=== PATIENT | male | born 1960 | race Caucasian/White ===

== ENCOUNTER 2021-02-21 05:46 | Emergency (ER) | payer OTHER ==
[2021-02-21] MEDS ORDERED: Sodium Chloride 0.9% 10 ML Syringe FLUSH PRN (06:12)
[2021-02-21] MEDS ORDERED: HYDROmorphone 1 MG/ML Syringe IVPUSH ONE ×3 (06:13→11:02)
[2021-02-21] MEDS ORDERED: Lactated Ringers 1,000 ML IV SCH (06:15)
--- NOTE | 2021-02-21 06:16 | EDM.PDOC ---
<OfficerTerrell - Last Filed: 02/21/21 06:16> ED HPI GENERAL MEDICAL PROBLEM - General Stated Complaint: ABD PAIN/SOB Time Seen by Provider: 02/21/21 06:11 Source of Information: Reports: Patient, Family, RN Notes Reviewed History Limitations: Reports: No Limitations - History of Present Illness INITIAL COMMENTS - FREE TEXT/NARRATIVE: 60-year-old gentleman presents emergency department day complaint of abdominal pain states it come on suddenly he feels very short of breath because of pain will take his breath away, he does have a history of gastric bypass about 3 years ago. - Related Data Allergies Allergy/AdvReac Type Severity Reaction Status Date / Time amoxicillin Allergy Rash Verified 02/21/21 06:30 Penicillins Allergy Rash Verified 02/21/21 06:30 atorvastatin [From Lipitor] AdvReac Muscle Verified 02/21/21 06:58 Weakness Home Meds: Home Meds Cyanocobalamin (Vitamin B-12) [Cyanocobalamin Injection] 1,000 mcg IJ Q30D 02/21/21 [History] Ferrous Sulfate [Iron] 325 mg PO DAILY 02/21/21 [History] Gabapentin [Neurontin] 100 mg PO BEDTIME 02/21/21 [History] Insulin Degludec [Tresiba] 20 unit SQ BEDTIME 02/21/21 [History] Pioglitazone [Actos] 15 mg PO BEDTIME 02/21/21 [History] Simvastatin 40 mg PO DAILY 02/21/21 [History] Tamsulosin HCl [Flomax] 0.4 mg PO BID 02/21/21 [History] lisinopriL [Lisinopril] 40 mg PO DAILY 02/21/21 [History] metFORMIN [Glucophage] 500 mg PO BIDMEALS 02/21/21 [History] Past Medical History - Past Surgical History GI Surgical History: Reports: Bariatric Procedure Social & Family History - Tobacco Use Tobacco Use Status *Q: Never Tobacco User ED ROS GENERAL - Review of Systems Review Of Systems: See Below Constitutional: Reports: No Symptoms Respiratory: Reports: Shortness of Breath Cardiovascular: Reports: No Symptoms GI/Abdominal: Reports: Abdominal Pain, Flatus. Denies: Nausea, Vomiting ED EXAM, GI/ABD - Physical Exam Exam: See Below Exam Limited By: No Limitations General Appearance: Alert, Mild Distress Respiratory/Chest: No Respiratory Distress, Lungs Clear, Normal Breath Sounds, No Accessory Muscle Use, Chest Non-Tender Cardiovascular: Regular Rate, Rhythm, No Murmur GI/Abdominal Exam: Normal Bowel Sounds, Soft, Distended, Tender #1 Interpretation EKG Date: 02/21/21 Time: 06:16 Rhythm: NSR [place]: Normal P-Wave: Present QRS: Normal ST-T: Normal QT: Normal Comparison: NA - No Prior EKG Departure - Departure Disposition: DC/Tfer to Other 70 Clinical Impression: Intestinal perforation Abdominal pain Qualifiers: Abdominal location: upper abdomen, unspecified Qualified Code(s): R10.10 - Upper abdominal pain, unspecified - Discharge Information Referrals: PCP,None [Primary Care Provider] - Forms: ED Department Discharge Care Plan Goals: Patient is to be transferred to [facility] for surgical consultation regarding upper abdominal pain with bowel perforation. His pain is relatively controlled on discharge and his vitals are stable. <Rodger Patiño - Last Filed: 02/21/21 14:43> ED HPI GENERAL MEDICAL PROBLEM Abdomen Pain Score (Numeric/FACES): 8 Course - Vital Signs Last Recorded V/S: Last Vital Signs Temp 95.7 F L 02/21/21 06:05 Pulse 87 02/21/21 10:53 Resp 14 02/21/21 10:53 BP 123/64 02/21/21 10:53 Pulse Ox 98 02/21/21 10:53 - Orders/Labs/Meds Orders: Active Orders 24 hr Category Date Time Status Insert Mccarty Catheter [Insert Urinary Catheter] [OM.PC] Care 02/21/21 07:00 Ordered Q24H Peripheral IV Insertion Adult [OM.PC] Urgent Oth 02/21/21 06:12 Ordered EKG 12 Lead [EK] Stat Ther 02/21/21 06:13 Ordered Labs: Laboratory Tests 02/21/21 02/21/21 02/21/21 Range/Units 06:05 06:05 06:05 WBC 7.5 (4.5-11.0) K/uL RBC 4.77 (4.30-5.90) M/uL Hgb 14.1 (12.0-15.0) g/dL Hct 42.7 (40.0-54.0) % MCV 90 (80-98) fL MCH 30 (27-31) pg MCHC 33 (32-36) % Plt Count 303 (150-400) K/uL Neut % (Auto) 45.1 (36-66) % Lymph % (Auto) 37.5 (24-44) % Citrus % (Auto) 12.9 H (2-6) % Eos % (Auto) 4.0 (2-4) % Baso % (Auto) 0.5 (0-1) % Sodium 137 L (140-148) mmol/L Potassium 4.1 (3.6-5.2) mmol/L Chloride 99 L (100-108) mmol/L Carbon Dioxide 29 (21-32) mmol/L Anion Gap 13.1 (5.0-14.0) mmol/L BUN 19 H (7-18) mg/dL Creatinine 0.8 (0.8-1.3) mg/dL Est Cr Clr Drug Dosing TNP Estimated GFR (MDRD) > 60 (>60) Glucose 195 H (74-106) mg/dL Lactic Acid 1.7 (0.4-2.0) mmol/L Calcium 8.9 (8.5-10.1) mg/dL Total Bilirubin 0.3 (0.2-1.0) mg/dL AST 33 (15-37) U/L ALT 54 (12-78) U/L Alkaline Phosphatase 59 (46-116) U/L Troponin I < 0.017 (0.000-0.056) ng/mL Total Protein 6.7 (6.4-8.2) g/dL Albumin 3.6 (3.4-5.0) g/dL Globulin 3.1 (2.3-3.5) g/dL Albumin/Globulin Ratio 1.2 (1.2-2.2) Lipase 244 (73-393) U/L Urine Color (YELLOW) Urine Appearance (CLEAR) Urine pH (5.0-8.0) Ur Specific [place] (1.008-1.030) Urine Protein (NEGATIVE) mg/dL Urine Glucose (UA) (NEGATIVE) mg/dL Urine Ketones (NEGATIVE) mg/dL Urine Occult Blood (NEGATIVE) Urine Nitrite (NEGATIVE) Urine Bilirubin (NEGATIVE) Urine Urobilinogen (0.2-1.0) EU/dL Ur Leukocyte Esterase (NEGATIVE) Urine RBC (0-5) Urine WBC (0-5) Ur Epithelial Cells Amorphous Sediment Urine Bacteria Urine Mucus SARS CoV-2 RNA Rapid CHET 02/21/21 02/21/21 Range/Units 07:43 08:58 WBC (4.5-11.0) K/uL RBC (4.30-5.90) M/uL Hgb (12.0-15.0) g/dL Hct (40.0-54.0) % MCV (80-98) fL MCH (27-31) pg MCHC (32-36) % Plt Count (150-400) K/uL Neut % (Auto) (36-66) % Lymph % (Auto) (24-44) % Citrus % (Auto) (2-6) % Eos % (Auto) (2-4) % Baso % (Auto) (0-1) % Sodium (140-148) mmol/L Potassium (3.6-5.2) mmol/L Chloride (100-108) mmol/L Carbon Dioxide (21-32) mmol/L Anion Gap (5.0-14.0) mmol/L BUN (7-18) mg/dL Creatinine (0.8-1.3) mg/dL Est Cr Clr Drug Dosing Estimated GFR (MDRD) (>60) Glucose (74-106) mg/dL Lactic Acid (0.4-2.0) mmol/L Calcium (8.5-10.1) mg/dL Total Bilirubin (0.2-1.0) mg/dL AST (15-37) U/L ALT (12-78) U/L Alkaline Phosphatase (46-116) U/L Troponin I (0.000-0.056) ng/mL Total Protein (6.4-8.2) g/dL Albumin (3.4-5.0) g/dL Globulin (2.3-3.5) g/dL Albumin/Globulin Ratio (1.2-2.2) Lipase (73-393) U/L Urine Color Yellow (YELLOW) Urine Appearance Clear (CLEAR) Urine pH 6.0 (5.0-8.0) Ur Specific [place] 1.015 (1.008-1.030) Urine Protein Negative (NEGATIVE) mg/dL Urine Glucose (UA) >=1000 H (NEGATIVE) mg/dL Urine Ketones Negative (NEGATIVE) mg/dL Urine Occult Blood Negative (NEGATIVE) Urine Nitrite Negative (NEGATIVE) Urine Bilirubin Negative (NEGATIVE) Urine Urobilinogen 0.2 (0.2-1.0) EU/dL Ur Leukocyte Esterase Negative (NEGATIVE) Urine RBC Not seen (0-5) Urine WBC Not seen (0-5) Ur Epithelial Cells Not seen Amorphous Sediment Few Urine Bacteria Rare Urine Mucus Not seen SARS CoV-2 RNA Rapid CHET Negative Meds: Medications Discontinued Medications Generic Name Dose Route Start Last Admin Trade Name Freq PRN Reason Stop Dose Admin Hydromorphone HCl 1 mg 02/21/21 06:13 02/21/21 06:31 Hydromorphone 1 Mg/Ml Syringe IVPUSH 02/21/21 06:14 1 mg ONETIME ONE Administration Hydromorphone HCl 1 mg 02/21/21 07:50 02/21/21 08:05 Hydromorphone 1 Mg/Ml Syringe IVPUSH 02/21/21 07:51 1 mg ONETIME ONE Administration Hydromorphone HCl 1 mg 02/21/21 11:02 02/21/21 11:08 Hydromorphone 1 Mg/Ml Syringe IVPUSH 02/21/21 11:03 1 mg ONETIME ONE Administration Lactated Ringer's 1,000 mls @ 125 mls/hr 02/21/21 06:15 02/21/21 06:34 Ringers, Lactated IV 125 mls/hr ASDIRECTED MEAGHAN Administration Sodium Chloride 80 mls @ 3.5 mls/sec 02/21/21 07:00 02/21/21 07:13 Normal Saline IV 02/21/21 07:01 3.5 mls/sec ASDIRECTED MEAGHAN Administration Cefoxitin Sodium 1 gm/ Sodium 50 mls @ 100 mls/hr 02/21/21 07:52 02/21/21 08:06 Chloride IV 02/21/21 08:21 100 mls/hr ONETIME ONE Administration Iopamidol 100 ml 02/21/21 07:00 02/21/21 07:13 Iopamidol 612 Mg/Ml 100 Ml Bottle IV 02/21/21 07:01 100 ml . DIRECTED MEAGHAN Administration Lidocaine HCl 10 ml 02/21/21 07:00 02/21/21 07:41 Lidocaine 2% Jelly 10 Ml Urojet MUCMEM 02/21/21 07:01 10 ml ONETIME ONE Administration Pantoprazole Sodium 40 mg 02/21/21 07:50 02/21/21 08:05 Pantoprazole 40 Mg Vial IVPUSH 02/21/21 07:51 40 mg ONETIME ONE Administration Sodium Chloride 10 ml 02/21/21 06:12 02/21/21 06:35 Sodium Chloride 0.9% 10 Ml Syringe FLUSH 10 ml ASDIRECTED PRN Administration Keep Vein Open Sodium Chloride 10 ml 02/21/21 06:51 02/21/21 09:55 Sodium Chloride 0.9% 10 Ml Syringe FLUSH 02/21/21 06:52 10 ml ONETIME ONE Administration - Re-Assessments/Exams Free Text/Narrative Re-Assessment/Exam: 02/21/21 08:05 Patient care turned over from Officer pending CT results. There is intra- abdominal free air and inflammatory changes around the duodenum and jejunum indicating a likely perforation. This was discussed with the radiologist. I also discussed this with Dr. Irizarry, surgeon on-call and it was recommended that the patient be transferred back [facility]. He was given 1 mg of IV Dilaudid, 40 mg of IV Protonix, and 500 mg of IV Mefoxin. We are awaiting a return call from the surgeon at his home hospital in [facility]. Departure - Departure Time of Disposition: 11:46 Sepsis Event Note (ED) - Focused Exam Vital Signs: Vital Signs Temp Pulse Resp BP Pulse Ox 02/21/21 10:53 87 14 123/64 98 02/21/21 09:43 76 15 121/60 97 02/21/21 09:13 73 13 120/61 96 02/21/21 08:48 69 16 107/44 L 96 02/21/21 08:14 69 18 117/43 L 96 02/21/21 07:47 62 18 118/48 L 97 02/21/21 07:01 65 14 121/55 L 100 02/21/21 06:05 95.7 F L 63 16 119/62 97
[2021-02-21] MEDS ORDERED: Sodium Chloride 0.9% 10 ML Syringe FLUSH ONE (06:51)
[2021-02-21] MEDS ORDERED: Sodium Chloride 0.9% 80 ML IV SCH (07:00)
[2021-02-21] MEDS ORDERED: Iopamidol 612 MG/ML 100 ML Bottle IV SCH (07:00)
[2021-02-21] MEDS ORDERED: Lidocaine 2% Jelly 10 ML Urojet MUCMEM ONE (07:00)
--- NOTE | 2021-02-21 07:44 | CRLCT ---
For Patients: As a result of the Century Cures Act, medical imaging exams and procedure reports are released immediately into your electronic medical record. You may view this report before your referring provider. If you have questions, please contact your health care provider. INDICATION: Epigastric abdomen pain. History of bariatric surgery. TECHNIQUE: CT abdomen and pelvis acquired with 100 cc Isovue-300 IV contrast. COMPARISON: None. FINDINGS: Lower chest: Unremarkable. Liver: Unremarkable. Normal in size and attenuation. No suspicious masses. Gallbladder and bile ducts: Unremarkable. No stones or inflammation. No biliary dilatation. Pancreas: Unremarkable. No mass or inflammation. Spleen: Unremarkable. Normal in size. No masses. Adrenal glands: Unremarkable. No nodules. Kidneys: Unremarkable. No suspicious masses, stones, or hydronephrosis. GI tract: Gastric bypass changes are present. GI tract otherwise within normal limits in caliber and appearance. Mild inflammation/edema involving the distal duodenum or proximal jejunum adjacent to the stomach. However, there is a fair amount of free air in the upper abdomen suspicious for a bowel perforation. Vasculature: Unremarkable. Mesenteric arteries are patent. Lymph nodes: No lymphadenopathy. Omentum/Peritoneum/Abdominal Wall: Minimal free fluid in the lower abdomen and pelvis. No focal fluid collection to suggest abscess or hematoma. Pelvis: Unremarkable. Bones: Unremarkable for age. IMPRESSION: Moderate amount of free intra-abdominal air suspicious for a perforated viscus. There are gastric bypass changes and mild inflammation/edema involving the distal duodenum or proximal jejunum. No other focal or specific finding to suggest a source of the free air. Remainder the exam is unremarkable. Results discussed with Dr. Patiño at 0740 hours. Dictated by Harmeet Martinez MD @ 02/21/2021 7:42:03 AM Please note that all CT scans at this facility use dose modulation, iterative reconstruction, and/or weight-based dosing when appropriate to reduce radiation dose to as low as reasonably achievable. Dictated by: Harmeet Martinez MD @ 02/21/2021 07:42:08 (Electronically Signed)
[2021-02-21] MEDS ORDERED: Pantoprazole 40 MG Vial IVPUSH ONE (07:50)
== END 2021-02-21 11:20 | disposition other institution (70) ==
LOC: JP.ED 05:46
DX: K63.1 Perforation of intestine (nontraumatic) (principal); Z88.0 Allergy status to penicillin; Z88.8 Allergy status to other drugs, medicaments and biological substances; Z20.822 Contact with and (suspected) exposure to COVID-19; Z79.4 Long term (current) use of insulin; Z79.899 Other long term (current) drug therapy
CPT/HCPCS: 36415; 51702; 51798; 74177; 80053; 81001; 83605; 83690; 84484; 85025; 87635; 93005; 96365; 96375; 96376; 99285; C9113; J0694; J1170; J7120; Q9967; U0002